=== PATIENT | male | born 1985 | race Two or more races ===

== ENCOUNTER 2019-08-31 20:53 | Emergency (ER) | payer SELFPAY ==
[~2019-08-31] VITALS: Ht 175.3 cm; Wt 120.2 kg
--- NOTE | 2019-08-31 21:07 | NUR ---
presented to the ER for c/o palpitation and high BP. denied cp. - SOB. _ PMH of HTN . placed on a monitor ,
--- NOTE | 2019-08-31 21:10 | NUR ---
dr. juares at the bed side
--- NOTE | 2019-08-31 21:13 | NUR ---
ECG TECH AT THE BED SIDE
[2019-08-31 21:24] LABS: BASOPHILS % (AUTO) 0.7 % (0.0-2.0); EOSINOPHILS % (AUTO) 1.6 % (0.0-6.0); HEMATOCRIT 47 % (39-51); LYMPHOCYTES # (AUTO) 1.2 /CMM (0.8-4.8); LYMPHOCYTES % (AUTO) 19.8 % (20.0-44.0); MEAN CORPUSCULAR HGB CONC 35 g/dl (31.0-36.0); MEAN CORPUSCULAR VOLUME 91 fL (80-96); MONOCYTES # (AUTO) 0.6 /CMM (0.1-1.30); MONOCYTES % (AUTO) 10.2 % (2.0-12.0); NEUTROPHILS # (AUTO) 4.2 /CMM (1.8-8.9); NEUTROPHILS % (AUTO) 67.7 % (43.0-81.0); PLATELET COUNT (AUTO) 179 /CMM (150-450); RED BLOOD CELL COUNT(AUTO) 5.13 MIL/uL (4.5-6.0); WHITE BLOOD COUNT (AUTO) 6.2 K/uL (4.3-11.0)
[2019-08-31 21:32] LABS: CALCIUM, SERUM 9.5 mg/dL (8.5-10.1); CARBON DIOXIDE 28 mmol/L (21-32); CHLORIDE 101 mmol/L (98-107); CREATININE 0.9 mg/dL (0.6-1.3); GLUCOSE 119 mg/dL (74-106); POTASSIUM 3.4 mmol/L (3.5-5.1); SODIUM SERUM 139 mmol/L (136-145); UREA NITROGEN, BLOOD 13 mg/dL (7-18)
[2019-08-31 22:02] VITALS: BP 168/101
--- NOTE | 2019-08-31 22:02 | NUR ---
IV removed. Catheter intact and site benign. Pressure and 4x4 applied to site. No bleeding noted.Patient discharged to home in stable condition. Rx and Written and verbal after care instructions given. Patient verbalizes understanding of instruction.
== END 2019-08-31 22:03 | disposition home or self-care (01) ==
LOC: ER 21:00
DX: I10 Essential (primary) hypertension (principal); R55 Syncope and collapse; R42 Dizziness and giddiness; R00.2 Palpitations; J45.909 Unspecified asthma, uncomplicated; F10.10 Alcohol abuse, uncomplicated; E66.9 Obesity, unspecified; Y90.9 Presence of alcohol in blood, level not specified; Z68.39 Body mass index [BMI] 39.0-39.9, adult; Z98.890 Other specified postprocedural states
CPT/HCPCS: 36415; 71045-TC; 80048-TC; 84484-TC; 85025-TC

== ENCOUNTER 2020-02-01 20:33 | Emergency (ER) | payer SELFPAY ==
[~2020-02-01] VITALS: Ht 175.3 cm; Wt 117.9 kg
--- NOTE | 2020-02-01 20:50 | NUR ---
C/O HIGHBLOOD PRESSURE. TOOK MOM'S [place] 100MG PO 1HR [employer] PER PT REPORT. PT DENIED CP, -N/V, -H/A OR DIZZINESS. APEARS VERY ANXIOUS. PT WAS PLACED ON A MONITOR,
--- NOTE | 2020-02-01 20:58 | NUR ---
at the bed side
[2020-02-01] MEDS ORDERED: LORAZEPAM 1 MG TABLET ONE (21:03)
[2020-02-01 21:24] LABS: BASOPHILS % (AUTO) 0.5 % (0.0-2.0); EOSINOPHILS % (AUTO) 0.5 % (0.0-6.0); HEMATOCRIT 45 % (39-51); HEMOGLOBIN 15.8 g/dL (13.5-17.5); LYMPHOCYTES # (AUTO) 0.9 /CMM (0.8-4.8); MEAN CORPUSCULAR HGB CONC 35 g/dl (31.0-36.0); MEAN CORPUSCULAR VOLUME 89 fL (80-96); MONOCYTES # (AUTO) 0.5 /CMM (0.1-1.30); MONOCYTES % (AUTO) 5.9 % (2.0-12.0); NEUTROPHILS # (AUTO) 6.8 /CMM (1.8-8.9); NEUTROPHILS % (AUTO) 82.1 % (43.0-81.0); PLATELET COUNT (AUTO) 197 /CMM (150-450); RED BLOOD CELL COUNT(AUTO) 5.05 MIL/uL (4.5-6.0); WHITE BLOOD COUNT (AUTO) 8.3 K/uL (4.3-11.0)
[2020-02-01] MEDS ORDERED: LORAZEPAM 1 MG TABLET PO ONE (21:30)
[2020-02-01 21:32] LABS: CALCIUM, SERUM 9.2 mg/dL (8.5-10.1); CARBON DIOXIDE 24 mmol/L (21-32); CHLORIDE 100 mmol/L (98-107); CREATININE 1.3 mg/dL (0.6-1.3); GLUCOSE 117 mg/dL (74-106); POTASSIUM 3.6 mmol/L (3.5-5.1); SODIUM SERUM 135 mmol/L (136-145); UREA NITROGEN, BLOOD 17 mg/dL (7-18)
--- NOTE | 2020-02-01 21:44 | NUR ---
at the bed side
[2020-02-01 21:50] VITALS: BP 152/85
--- NOTE | 2020-02-01 21:50 | NUR ---
PT MEDUICALLY STABLE AND CLEAR FOR D/C. Patient discharged to home in stable condition. Written and verbal after care instructions given. Patient verbalizes understanding of instruction.
== END 2020-02-01 21:51 | disposition home or self-care (01) ==
LOC: ER 20:38
DX: I10 Essential (primary) hypertension (principal); F41.9 Anxiety disorder, unspecified; R42 Dizziness and giddiness; R51 Headache; R07.89 Other chest pain; J45.909 Unspecified asthma, uncomplicated; Z98.890 Other specified postprocedural states
CPT/HCPCS: 36415; 80048-TC; 84484-TC; 85025-TC

== ENCOUNTER 2022-10-26 13:45 | Emergency (ER) | payer SELFPAY ==
[~2022-10-26] VITALS: Ht 175.3 cm; Wt 122.5 kg
--- NOTE | 2022-10-26 14:50 | NUR ---
rdeceved pt 37 male came from home c/o
[2022-10-26] MEDS ORDERED: ACETAMINOPHEN ES 500 MG TABLET PO ONE (15:00)
[2022-10-26] MEDS ORDERED: IV NS 0.9% 1,000 ML BAG IV ONE (15:00)
--- NOTE | 2022-10-26 15:15 | NUR ---
INSERTED ANGO CATHTER G 20 ON RT AC BLOOD drow and sent to lab
[2022-10-26 15:30] LABS: BASOPHILS % (AUTO) 0.3 % (0.0-2.0); EOSINOPHILS % (AUTO) 0.9 % (0.0-6.0); HEMATOCRIT 44 % (39-51); HEMOGLOBIN 14.6 g/dL (13.5-17.5); LYMPHOCYTES # (AUTO) 0.9 K/uL (0.8-4.8); LYMPHOCYTES % (AUTO) 14.3 % (20.0-44.0); MEAN CORPUSCULAR HGB CONC 33 g/dl (31.0-36.0); MEAN CORPUSCULAR VOLUME 94 fL (80-96); MONOCYTES # (AUTO) 0.6 K/uL (0.1-1.30); NEUTROPHILS # (AUTO) 4.8 K/uL (1.8-8.9); NEUTROPHILS % (AUTO) 75.5 % (43.0-81.0); PLATELET COUNT (AUTO) 107 K/uL (150-450); WHITE BLOOD COUNT (AUTO) 6.4 K/uL (4.3-11.0)
[2022-10-26] MEDS ORDERED: ONDANSETRON HCL/PF 4 MG/2 ML VIAL ONE (15:38)
[2022-10-26] MEDS: ONDANSETRON HCL/PF 4 MG/2 ML VIAL IVP ONE (15:39)
[2022-10-26] MEDS ORDERED: ACETAMINOPHEN ES 500 MG TABLET ONE (15:39)
--- NOTE | 2022-10-26 15:45 | NUR ---
ABDOMINALE US DONE AT BED SIDE
[2022-10-26 15:54] LABS: ALANINE AMINOTRANSFERASE 76 U/L (12-78); ALBUMIN 3.6 g/dL (3.4-5.0); ALKALINE PHOSPHATASE 123 U/L (46-116); ASPARTATE AMINOTRANSFERASE 58 U/L (15-37); BILIRUBIN,DIRECT 0.5 mg/dL (0.0-0.2); BILIRUBIN,TOTAL 0.8 mg/dL (0.2-1.0); CALCIUM, SERUM 9.6 mg/dL (8.5-10.1); CARBON DIOXIDE 28 mmol/L (21-32); CHLORIDE 100 mmol/L (98-107); CREATININE 0.8 mg/dL (0.6-1.3); GLUCOSE 164 mg/dL (74-106); LIPASE 101 U/L (73-393); POTASSIUM 4.2 mmol/L (3.5-5.1); SODIUM SERUM 137 mmol/L (136-145); TOTAL PROTEIN, SERUM 9.3 g/dL (6.4-8.2); UREA NITROGEN, BLOOD 8 mg/dL (7-18)
--- NOTE | 2022-10-26 16:25 | NUR ---
IV removed. Catheter intact and site benign. Pressure and 4x4 applied to site. No bleeding noted.
--- NOTE | 2022-10-26 16:25 | NUR ---
Patient discharged to home in stable condition. Written and verbal after care instructions given. Patient verbalizes understanding of instruction.
--- NOTE | 2022-10-26 16:36 | NUR ---
DINESES ABDMINALE PAIN
[2022-10-26 16:42] VITALS: BP 160/102
== END 2022-10-26 16:43 | disposition home or self-care (01) ==
LOC: ER 13:53
DX: R10.11 Right upper quadrant pain (principal); R11.0 Nausea
CPT/HCPCS: 99285; 96374; 76705; 71045; 96361; 93005; 85025; 80048; 83690; 80076; 36415; 84484; 83880; J2405; J7030

== ENCOUNTER 2024-07-07 15:15 | Emergency (ER) | payer MEDICAID ==
[~2024-07-07] VITALS: Ht 175.3 cm; Wt 120.2 kg
[~2024-07-07 15:15] MED LIST: ONDA4TAB5 PO; PANT40TA2 PO
[2024-07-07] MEDS: ONDANSETRON HCL/PF 4 MG/2 ML VIAL IVP ONE (16:00)
[2024-07-07] MEDS: PANTOPRAZOLE 40 MG VIAL IV ONE (16:05)
[2024-07-07] MEDS: MAG HYDROX/AL HYDROX/SIMETH 30 ML UDC PO ONE (16:10)
[2024-07-07] MEDS ORDERED: ONDANSETRON HCL/PF 4 MG/2 ML VIAL ONE (16:17)
[2024-07-07] MEDS ORDERED: PANTOPRAZOLE 40 MG VIAL ONE (16:17)
[2024-07-07] MEDS ORDERED: MAG HYDROX/AL HYDROX/SIMETH 30 ML UDC ONE (16:18)
[2024-07-07] MEDS ORDERED: MORPHINE SULFATE INJ 4 MG/ML DISP.SYRIN ONE (16:18)
[2024-07-07 16:24] LABS: BASOPHILS % (AUTO) 0.9 % (0.0-2.0); EOSINOPHILS # (AUTO) 0.1 K/uL (0.0-0.7); EOSINOPHILS % (AUTO) 2.1 % (0.0-6.0); HEMATOCRIT 42 % (39-51); HEMOGLOBIN 14.3 g/dL (13.5-17.5); LYMPHOCYTES # (AUTO) 0.9 K/uL (0.8-4.8); LYMPHOCYTES % (AUTO) 20.1 % (20.0-44.0); MEAN CORPUSCULAR HEMOGLOBIN 33 PG (26.0-33.0); MEAN CORPUSCULAR HGB CONC 34 g/dl (31.0-36.0); MEAN CORPUSCULAR VOLUME 95 fL (80-96); MONOCYTES # (AUTO) 0.5 K/uL (0.1-1.30); MONOCYTES % (AUTO) 11.9 % (2.0-12.0); PLATELET COUNT (AUTO) 70 K/uL (150-450); RED BLOOD CELL COUNT(AUTO) 4.36 MIL/uL (4.5-6.0); RED CELL DISTRIBUTION WIDTH 14.7 % (11.5-15.0); WHITE BLOOD COUNT (AUTO) 4.6 K/uL (4.3-11.0)
[2024-07-07 16:28] LABS: APPEARANCE,URINE Clear (CLEAR); BILIRUBIN,URINE Negative (NEGATIVE); BLOOD, URINE Trace-lysed Ery/uL (NEGATIVE); COLOR,URINE YELLOW (YELLOW); KETONES,URINE Negative (NEGATIVE); LEUKOCYTE ESTERASE ,URINE Negative (NEGATIVE); NITRITE, URINE Negative (NEGATIVE); PROTEIN,URINE Negative (NEGATIVE); UGLUCOSE Negative (NEGATIVE)
[2024-07-07 16:33] LABS: CALCIUM, SERUM 8.7 mg/dL (8.5-10.1); CREATININE 0.7 mg/dL (0.6-1.3); POTASSIUM 3.7 mmol/L (3.5-5.1)
[2024-07-07 16:35] LABS: ALBUMIN 3.4 g/dL (3.4-5.0); BILIRUBIN,DIRECT 1.3 mg/dL (0.0-0.2); BILIRUBIN,TOTAL 1.6 mg/dL (0.2-1.0)
[2024-07-07] MEDS: MORPHINE SULFATE INJ 2 MG/ML DISP.SYRIN IV ONE (16:40)
[2024-07-07] MEDS ORDERED: IV NS 0.9% 250 ML IV ONE (16:59)
[2024-07-07] MEDS ORDERED: IOHEXOL-300 100 ML VIAL IV ONE (16:59)
[2024-07-07 17:02] LABS: ADD URINE CULTURE NO; BACTERIA,URINE None seen /HPF (None Seen); RBC,URINE 0-2 /HPF (0-2); SQUAMOUS EPITHELIAL CELL,UR 0-2 /HPF (None Seen)
[2024-07-07] MEDS ORDERED: PANT40TA2 PO (18:56)
[2024-07-07] MEDS ORDERED: ONDA4TAB11 PO (18:56)
[2024-07-07 19:07] VITALS: BP 142/90; TEMP 98.8; O2SAT 95
[2024-07-07 19:20] LABS: ANISOCYTOSIS 1+; EOSINOPHILS % (MANUAL) 1 % (0-4); LYMPHOCYTES % (MANUAL) 18 % (16-48); MONOCYTES % (MANUAL) 7 % (0-11.0); NEUTROPHILS % (MANUAL) 74 (42-76); PLATELET ESTIMATE DECRE; ROULEAUX 1+
== END 2024-07-07 19:08 | disposition home or self-care (01) ==
LOC: ER 15:20
DX: R10.13 Epigastric pain (principal); R11.0 Nausea; K92.1 Melena; F10.10 Alcohol abuse, uncomplicated; Z79.899 Other long term (current) drug therapy
CPT/HCPCS: 99285; 74177; 96374; 76705; 96375; 85025; 80048; 83690; 80076; 81001; 36415; 85007; J2405; J7050; J2470; A6403; Q9967; J2270

== ENCOUNTER 2024-08-01 15:19 | Emergency (ER) | payer MEDICAID ==
[~2024-08-01] VITALS: Ht 175.3 cm; Wt 116.1 kg
[~2024-08-01 15:19] MED LIST changes: +ONDA4TAB11 PO
[2024-08-01 15:40] VITALS: TEMP 97.9
[2024-08-01] MEDS ORDERED: IBUP-1957 PO (17:07)
[2024-08-01] MEDS ORDERED: ACET-2030 PO (17:07)
[2024-08-01 17:25] VITALS: BP 163/83
[2024-08-01 17:30] VITALS: O2SAT 99
== END 2024-08-01 17:53 | disposition home or self-care (01) ==
LOC: ER 15:20
DX: S93.401A Sprain of unspecified ligament of right ankle, initial encounter (principal); S90.31XA Contusion of right foot, initial encounter; Z79.899 Other long term (current) drug therapy; W01.0XXA Fall on same level from slipping, tripping and stumbling without subsequent striking against object, initial encounter; Y93.01 Activity, walking, marching and hiking; Y92.89 Other specified places as the place of occurrence of the external cause; Y99.8 Other external cause status
CPT/HCPCS: 73610-TC; 73630-TC

== ENCOUNTER 2024-08-20 14:07 | Emergency (ER) | payer MEDICAID ==
[~2024-08-20] VITALS: Ht 175.3 cm; Wt 116.6 kg
[~2024-08-20 14:07] MED LIST changes: +ACET-2030 PO; +IBUP-1957 PO
[2024-08-20 14:48] VITALS: BP 167/93; TEMP 98.5
[2024-08-20 15:30] VITALS: O2SAT 99
== END 2024-08-20 16:02 | disposition home or self-care (01) ==
LOC: ER 14:09
DX: D69.6 Thrombocytopenia, unspecified (principal); R04.0 Epistaxis; Z79.1 Long term (current) use of non-steroidal anti-inflammatories (NSAID); Z79.899 Other long term (current) drug therapy